=== PATIENT | female | born 1960 | race Caucasian/White ===

== ENCOUNTER → 2016-10-07 | Outpatient (CLI) | payer OTHER | LOC: OD 13:15 | PROVIDERS: ATTEND Specialist | DX: E11.9 Type 2 diabetes mellitus without complications (principal) | CPT/HCPCS: 36415; 83036 ==

== ENCOUNTER 2016-12-14 03:49 | Emergency (ER) | payer OTHER ==
--- NOTE | 2016-12-14 05:39 | ER Document Report ---
ED Medical Screen (RME) - General Chief Complaint: Rectal Pain Stated Complaint: RECTAL PAIN Time Seen by Provider: 12/14/16 05:37 Mode of Arrival: Wheelchair Information source: Patient Notes: Patient states that she developed rectal pain around 245 this morning. Patient states the pain woke her up. Patient also reports left lower pelvic pain off and on but states that he has had this pelvic pain in the past. Patient denies any blood in the stools, nausea, or vomiting. Patient states that the pain initially was very sharp and is now only very mild hx: IBS, diabetes, ischemic colitis, , cholecystectomy, abdominoplasty TRAVEL OUTSIDE OF THE [place] IN LAST 30 DAYS: No - Related Data Allergies/Adverse Reactions: No Known Allergies Allergy (Verified 03/17/13 22:09) Past Medical History Renal/ Medical History: Denies: Hx Peritoneal Dialysis Musculoskeltal Medical History: Reports Hx Arthritis Psychiatric Medical History: Reports: Hx Depression Past Surgical History: Reports: Hx Abdominal Surgery - abdominoplasty, Hx Section - x2, Hx Cholecystectomy, Hx Hysterectomy, Hx Orthopedic Surgery - revision of the left hip October 2012 - Immunizations Hx Diphtheria, Pertussis, Tetanus Vaccination: Yes Physical Exam - Vital signs Vitals: Temp Pulse Resp BP Pulse Ox 97.5 F 70 18 121/72 96 12/14/16 03:53 12/14/16 03:53 12/14/16 03:53 12/14/16 03:53 12/14/16 03:53 - Abdominal Tenderness: Tender - Lower pelvic tenderness - Rectal Hemorrhoids: None Course - Vital Signs Vital signs: Temp Pulse Resp BP Pulse Ox 97.5 F 70 18 121/72 96 12/14/16 03:53 12/14/16 03:53 12/14/16 03:53 12/14/16 03:53 12/14/16 03:53
--- NOTE | 2016-12-14 06:05 | RADIOLOGY REPORT (SQ) ---
EXAM DESCRIPTION: KUB/ABDOMEN (SINGLE VIEW) COMPLETED DATE/TIME: 12/14/2016 5:55 am REASON FOR STUDY: rectal pain, LLQ pain COMPARISON: None. NUMBER OF VIEWS: One view. TECHNIQUE: Supine radiographic image of the abdomen acquired. LIMITATIONS: None. FINDINGS: BOWEL GAS PATTERN: Moderate transverse and right colonic stool retention. CALCIFICATIONS: No suspicious calcifications. SOFT TISSUES: No gross mass or suggestion of organomegaly. HARDWARE: As below. BONES: Left total hip arthroplasty. Right upper abdominal clips. Moderate osteoarthritis of the rig ht hip with moderate medial all migration. OTHER: No other significant finding. IMPRESSION: NO RADIOGRAPHIC EVIDENCE FOR ACUTE ABDOMINAL DISEASE. TECHNICAL DOCUMENTATION: JOB ID: [id number] [employer]- All Rights Reserved
[2016-12-14 06:09] LABS: ABSOLUTE BASOPHILS # (AUTO) 0.1 10^3/uL (0.0-0.2); ABSOLUTE EOSINOPHILS # (AUTO) 0.2 10^3/uL (0.0-0.6); ABSOLUTE LYMPHOCYTES (AUTO) 2.6 10^3/uL (0.5-4.7); ABSOLUTE MONOCYTES (AUTO) 0.7 10^3/uL (0.1-1.4); ABSOLUTE NEUT (AUTO) 6.2 10^3/uL (1.7-8.2); BASOPHILS % (AUTO) 0.6 % (0-2); EOSINOPHILS % (AUTO) 2.1 % (0-6); HEMATOCRIT 37.9 % (36.0-47.0); HEMOGLOBIN 12.5 g/dL (12.0-15.5); HGB HCT DIFFERENCE -0.4; LYMPHOCYTES % (AUTO) 26.6 % (13-45); MEAN CORPUSCULAR HEMOGLOBIN 29.1 pg (27.0-33.4); MEAN CORPUSCULAR HGB CONC 32.9 g/dL (32.0-36.0); MEAN CORPUSCULAR VOLUME 89 fl (80-97); MONOCYTES % (AUTO) 7.6 % (3-13); RED BLOOD COUNT 4.29 10^6/uL (3.72-5.28); RED CELL DISTRIBUTION WIDTH 13.3 % (11.5-14.0); SEGMENTED NEUTROPHILS % (AUTO) 63.1 % (42-78); WHITE BLOOD COUNT 9.8 10^3/uL (4.0-10.5)
[2016-12-14 06:20] LABS: ALANINE AMINOTRANSFERASE 65 U/L (9-52); ALBUMIN 4.1 g/dL (3.5-5.0); ALKALINE PHOSPHATASE 83 U/L (38-126); ANION GAP 14 (5-19); ASPARTATE AMINO TRANSFERASE 30 U/L (14-36); BILIRUBIN,DIRECT 0.3 mg/dL (0.0-0.4); BILIRUBIN,TOTAL 0.6 mg/dL (0.2-1.3); BLOOD UREA NITROGEN 18 mg/dL (7-20); CALCIUM 9.1 mg/dL (8.4-10.2); CARBON DIOXIDE 26 mmol/L (22-30); CHLORIDE 99 mmol/L (98-107); CREATININE RESULT 0.69 mg/dL (0.52-1.25); GLUCOSE 153 mg/dL (75-110); SODIUM 139.4 mmol/L (137-145); TOTAL PROTEIN 7.2 g/dL (6.3-8.2)
[2016-12-14] MEDS ORDERED: LIDOCAINE 2% URO-JET 5 ML KIT MM ONE (06:48)
[2016-12-14 06:50] VITALS: BP 104/70
[2016-12-14 06:53] LABS: AMORPHOUS SEDIMENT,URINE TRACE /HPF; APPEARANCE,URINE CLEAR; BILIRUBIN,URINE NEGATIVE (NEGATIVE); GLUCOSE, URINE NEGATIVE (NEGATIVE); KETONES,URINE NEGATIVE (NEGATIVE); LEUKOCYTE ESTERASE,URINE NEGATIVE (NEGATIVE); NITRITE,URINE NEGATIVE (NEGATIVE); PROTEIN,URINE NEGATIVE (NEGATIVE); URINE SPECIFIC GRAVITY 1.012; UROBILINOGEN,URINE NEGATIVE mg/dL (<2.0)
--- NOTE | 2016-12-14 06:54 | ER Document Report ---
ED General - General Chief Complaint: Rectal Pain Stated Complaint: RECTAL PAIN Time Seen by Provider: 12/14/16 05:37 Mode of Arrival: Wheelchair TRAVEL OUTSIDE OF THE [place] IN LAST 30 DAYS: No - HPI Patient complains to provider of: rectal pain Notes: Patient coming in for severe rectal pain. Patient has history of internal hemorrhoids. Patient states also is having bright red blood when stooling. Patient states she has not followed up with a GI specialist for quite some time and has been using Preparation H for her rectal pain. Patient denies any other symptoms nausea vomiting diarrhea. - Related Data Allergies/Adverse Reactions: No Known Allergies Allergy (Verified 03/17/13 22:09) Past Medical History - General Information source: Patient - Social History Smoking Status: Unknown if Ever Smoked Family History: None Patient has suicidal ideation: No Patient has homicidal ideation: No Renal/ Medical History: Denies: Hx Peritoneal Dialysis Musculoskeltal Medical History: Reports Hx Arthritis Psychiatric Medical History: Reports: Hx Depression Past Surgical History: Reports: Hx Abdominal Surgery - abdominoplasty, Hx Section - x2, Hx Cholecystectomy, Hx Hysterectomy, Hx Orthopedic Surgery - revision of the left hip October 2012 - Immunizations Hx Diphtheria, Pertussis, Tetanus Vaccination: Yes Review of Systems - Review of Systems Constitutional: No symptoms reported EENT: No symptoms reported Cardiovascular: No symptoms reported Respiratory: No symptoms reported Gastrointestinal: Other - Rectal pain Genitourinary: No symptoms reported Female Genitourinary: No symptoms reported Musculoskeletal: No symptoms reported Skin: No symptoms reported Hematologic/Lymphatic: No symptoms reported Neurological/Psychological: No symptoms reported -: Yes All other systems reviewed and negative Physical Exam - Vital signs Vitals: Temp Pulse Resp BP Pulse Ox 97.5 F 70 18 121/72 96 12/14/16 03:53 12/14/16 03:53 12/14/16 03:53 12/14/16 03:53 12/14/16 03:53 Interpretation: Normal - General General appearance: Appears well, Alert - HEENT Head: Normocephalic, Atraumatic Eyes: Normal Pupils: PERRL - Respiratory Respiratory status: No respiratory distress Chest status: Nontender Breath sounds: Normal Chest palpation: Normal - Cardiovascular Rhythm: Regular Heart sounds: Normal auscultation Murmur: No - Abdominal Inspection: Normal Distension: No distension Bowel sounds: Normal Tenderness: Nontender Organomegaly: No organomegaly - Rectal Hemorrhoids: Internal. No: External, Anal fissure - Back Back: Normal, Nontender - Extremities General upper extremity: Normal inspection, Nontender, Normal color, Normal ROM , Normal temperature General lower extremity: Normal inspection, Nontender, Normal color, Normal ROM , Normal temperature, Normal weight bearing. No: Madi's sign - Neurological Neuro grossly intact: Yes Cognition: Normal Orientation: AAOx4 [place] Coma Scale Eye Opening: Spontaneous [place] Coma Scale Verbal: Oriented [place] Coma Scale Motor: Obeys Commands [place] Coma Scale Total: 15 Speech: Normal Motor strength normal: LUE, RUE, LLE, RLE Sensory: Normal - Psychological Associated symptoms: Normal affect, Normal mood - Skin Skin Temperature: Warm Skin Moisture: Dry Skin Color: Normal Course - Re-evaluation Re-evalutation: 12/14/16 10:12 Looks to have internal hemorrhoids. Patient was given a Urojet for her pain control to take at home. Patient will be prescribed enalapril and directed care. Patient x-ray does show the moderate constipation patient was encouraged to use stool softeners patient was given follow-up with GI patient will be discharged home - Vital Signs Vital signs: Temp Pulse Resp BP Pulse Ox 97.5 F 61 20 104/70 94 12/14/16 03:53 12/14/16 06:49 12/14/16 06:49 12/14/16 06:49 12/14/16 06:49 - Laboratory Result Diagrams: 12/14/16 05:58 12/14/16 05:58 Laboratory results interpreted by me: 12/14/16 12/14/16 05:58 06:05 Glucose 153 H ALT 65 H Urine Blood SMALL H Discharge - Discharge Clinical Impression: Rectal pain Hemorrhoids Qualifiers: Hemorrhoid type: unspecified Qualified Code(s): K64.9 - Unspecified hemorrhoids Condition: Good Disposition: HOME, SELF-CARE Instructions: Hemorrhoids ([facility]) Additional Instructions: Apply medication as directed. Return to the ER if symptoms worsen. I would highly recommend following up with a GI specialist for further evaluation Also recommend taking a stool softener your x-ray today that shows some stool retention possible some constipation. [id number] stool softener will aid in soften his stools also aid in relief with your hemorrhoids Prescriptions: Hydrocortisone/Pramoxine [Analpram Hc 2.5% Cream] 30 gm RC TID #1 cream.appl Lidocaine [Recticare] 30 gm TP QID #1 cream..g. Forms: Return to Work Referrals: KATHY REAL MD [ACTIVE STAFF] - Follow up as needed
== END 2016-12-14 07:08 | disposition home or self-care (01) ==
LOC: ER 03:49
DX: K64.8 Other hemorrhoids (principal); K62.89 Other specified diseases of anus and rectum; K92.1 Melena
CPT/HCPCS: 99284; 36415; 83605; 85025; 80053; 81001; 74000; J3490

== ENCOUNTER 2016-12-18 09:42 | Observation (INO) | payer OTHER ==
[2016-12-18] MEDS ORDERED: ASPIRIN 325 MG TABLET PO ONE (10:53)
[2016-12-18] MEDS ORDERED: NITROGLYCERIN 0.4 MG/TAB 25 TAB/BOTTLE SL PRN ×2 (10:53→17:15)
--- NOTE | 2016-12-18 10:53 | ER Document Report ---
ED Medical Screen (RME) - General Mode of Arrival: Wheelchair Information source: Patient TRAVEL OUTSIDE OF THE [place] IN LAST 30 DAYS: No - HPI Patient complains to provider of: Chest Pain Onset: This morning Onset/Duration: Sudden Associated Symptoms: Other - see notes above - Related Data Smoking: Non-smoker Frequency of alcohol use: Rare Drug Abuse: None <LUKE SMITH - Last Filed: 12/18/16 11:29> <IMAN RESENDIZ - Last Filed: 12/18/16 11:57> - General Chief Complaint: Chest Pain > 30 Stated Complaint: chest pain Time Seen by Provider: 12/18/16 10:45 Notes: 56-year-old female with history of GERD, diabetes, and hyperlipidemia presents to the ED complaining of sharp stabbing substernal chest pain that has radiated between her shoulder blades and a tingling sensation down her left arm which started earlier this morning. Patient states that she initially thought that the pain was secondary to GERD, but when she took Nexium, Tums, and Maalox, the pain did not resolve. Patient reports that the pain is intermittent and that it eases off and comes back in "waves". Patient reports that the pain is similar to when she had cholelithiasis, but reports that she had her gallbladder removed. Patient saw her GI specialist yesterday and is scheduled for endoscopy secondary to GERD. Patient denies history of [place] or pancreatitis. (LUKE SMITH) - Related Data Allergies/Adverse Reactions: No Known Allergies Allergy (Verified 12/18/16 09:58) Past Medical History - General Information source: Patient - Social History Cigarette use (# per day): No Chew tobacco use (# tins/day): No Frequency of alcohol use: Rare Drug Abuse: None Family history: Reviewed & Not Pertinent - Past Medical History Cardiac Medical History: Reports: Hx Hypercholesterolemia Denies: Hx Heart Attack Endocrine Medical History: Reports: Hx Diabetes Mellitus Type 2 Renal/ Medical History: Denies: Hx Peritoneal Dialysis GI Medical History: Reports: Other - No history of pancreatitis. Musculoskeltal Medical History: Reports Hx Arthritis Psychiatric Medical History: Reports: Hx Depression Past Surgical History: Reports: Hx Abdominal Surgery - abdominoplasty, Hx Section - x2, Hx Cholecystectomy, Hx Hysterectomy, Hx Orthopedic Surgery - revision of the left hip October 2012 - Immunizations Hx Diphtheria, Pertussis, Tetanus Vaccination: Yes <LUKE SMITH - Last Filed: 12/18/16 11:29> Review of Systems - Review of Systems Constitutional: No symptoms reported EENT: No symptoms reported Cardiovascular: See HPI, Chest pain - substernal that radiates in between shoulder blades Respiratory: No symptoms reported Gastrointestinal: No symptoms reported Genitourinary: No symptoms reported Female Genitourinary: No symptoms reported Musculoskeletal: No symptoms reported Skin: No symptoms reported Hematologic/Lymphatic: No symptoms reported Neurological/Psychological: See HPI, Tingling - left arm -: Yes All other systems reviewed and negative <LUKE SMITH - Last Filed: 12/18/16 11:29> Physical Exam - General General appearance: Alert In distress: None - Respiratory Respiratory status: No respiratory distress Breath sounds: Normal - Cardiovascular Rhythm: Regular Heart sounds: Normal auscultation Murmur: No Friction rub: No Gallop: None auscultated - Abdominal Inspection: Normal Distension: No distension Bowel sounds: Normal Tenderness: Tender - epigastric tenderness to palpation <LUKE SMITH - Last Filed: 12/18/16 11:29> Course - Laboratory Result Diagrams: 12/18/16 11:10 12/18/16 11:10 <LUKE SMITH - Last Filed: 12/18/16 11:29> - Laboratory Result Diagrams: 12/18/16 11:10 12/18/16 11:10 <IMAN RESENDIZ - Last Filed: 12/18/16 11:57> - Vital Signs Vital signs: Temp Pulse Resp BP Pulse Ox 97.5 F 80 12 138/87 H 95 12/18/16 09:57 12/18/16 09:57 12/18/16 09:57 12/18/16 09:57 12/18/16 09:57 Scribe Documentation - Scribe Written by Sakshi:: Sakshi Tan, 12/18/2016 1137 acting as scribe for :: Ed <LUKE SMITH - Last Filed: 12/18/16 11:29>
--- NOTE | 2016-12-18 11:09 | EKG REPORT ---
SEVERITY:- ABNORMAL ECG - SINUS RHYTHM LEFT ATRIAL ABNORMALITY : Confirmed by: Amanda Wyatt 18-Dec-2016 11:08:43
[2016-12-18 11:34] LABS: ABSOLUTE BASOPHILS # (AUTO) 0.1 10^3/uL (0.0-0.2); ABSOLUTE EOSINOPHILS # (AUTO) 0.2 10^3/uL (0.0-0.6); ABSOLUTE LYMPHOCYTES (AUTO) 2.5 10^3/uL (0.5-4.7); ABSOLUTE MONOCYTES (AUTO) 0.7 10^3/uL (0.1-1.4); ABSOLUTE NEUT (AUTO) 4.6 10^3/uL (1.7-8.2); BASOPHILS % (AUTO) 0.9 % (0-2); HEMATOCRIT 40.1 % (36.0-47.0); HEMOGLOBIN 13.1 g/dL (12.0-15.5); HGB HCT DIFFERENCE -0.8; LYMPHOCYTES % (AUTO) 30.5 % (13-45); MEAN CORPUSCULAR HEMOGLOBIN 28.9 pg (27.0-33.4); MEAN CORPUSCULAR HGB CONC 32.6 g/dL (32.0-36.0); MEAN CORPUSCULAR VOLUME 89 fl (80-97); MONOCYTES % (AUTO) 8.9 % (3-13); RED BLOOD COUNT 4.52 10^6/uL (3.72-5.28); RED CELL DISTRIBUTION WIDTH 13.1 % (11.5-14.0); SEGMENTED NEUTROPHILS % (AUTO) 57.7 % (42-78)
--- NOTE | 2016-12-18 11:37 | RADIOLOGY REPORT (SQ) ---
EXAM DESCRIPTION: CHEST PA/LAT COMPLETED DATE/TIME: 12/18/2016 11:29 am REASON FOR STUDY: chest pain COMPARISON: 03/18/2013 EXAM PARAMETERS: NUMBER OF VIEWS: two views TECHNIQUE: Digital Frontal and Lateral radiographic views of the chest acquired. RADIATION DOSE: NA LIMITATIONS: none FINDINGS: LUNGS AND PLEURA: No opacities, masses or pneumothorax. No pleural effusion. MEDIASTINUM AND HILAR STRUCTURES: No masses or contour abnormalities. HEART AND VASCULAR STRUCTURES: Heart normal size. No evidence for failure. BONES: No acute findings. HARDWARE: None in the chest. OTHER: No other significant finding. IMPRESSION: NO SIGNIFICANT RADIOGRAPHIC FINDING IN THE CHEST. TECHNICAL DOCUMENTATION: JOB ID: [id number] [employer]- All Rights Reserved
[2016-12-18] MEDS ORDERED: REGADENOSON INJ 0.4 MG/5 ML DISP.SYRIN IV ONE (11:39)
[2016-12-18 11:41] LABS: PROTHROMBIN TIME 12.4 SEC (11.4-15.4)
[2016-12-18] MEDS ORDERED: LIDOCAINE 2% VISCOUS SOLN 20 ML UDCUP PO ONE (11:47)
[2016-12-18] MEDS ORDERED: MAG HYDROX/AL HYDROX/SIMETH SUSP 30 ML UDCUP PO ONE (11:47)
[2016-12-18] MEDS ORDERED: METOCLOPRAMIDE HCL ORAL SOLN 10 MG/10 ML UDCUP PO ONE (11:47)
[2016-12-18 12:01] LABS: ALANINE AMINOTRANSFERASE 90 U/L (9-52); ALBUMIN 4.6 g/dL (3.5-5.0); ALKALINE PHOSPHATASE 94 U/L (38-126); ANION GAP 14 (5-19); ASPARTATE AMINO TRANSFERASE 67 U/L (14-36); BILIRUBIN,DIRECT 0.4 mg/dL (0.0-0.4); BILIRUBIN,TOTAL 0.6 mg/dL (0.2-1.3); BLOOD UREA NITROGEN 14 mg/dL (7-20); CALCIUM 9.7 mg/dL (8.4-10.2); CARBON DIOXIDE 27 mmol/L (22-30); CHLORIDE 97 mmol/L (98-107); CREATINE KINASE 78 U/L (30-135); CREATININE RESULT 0.68 mg/dL (0.52-1.25); GLUCOSE 126 mg/dL (75-110); LIPASE 99.4 U/L (23-300); POTASSIUM 3.9 mmol/L (3.6-5.0); SODIUM 138.1 mmol/L (137-145); TOTAL PROTEIN 8.3 g/dL (6.3-8.2)
[2016-12-18 12:25] LABS: TROPONIN I < 0.012 ng/mL
--- NOTE | 2016-12-18 13:25 | ER Document Report ---
ED Cardiac - General Chief Complaint: Chest Pain > 30 Stated Complaint: chest pain Time Seen by Provider: 12/18/16 10:45 Mode of Arrival: Wheelchair Notes: 56-year-old female with history of GERD, diabetes, and hyperlipidemia presents to the ED complaining of sharp stabbing substernal chest pain that has radiated between her shoulder blades and a tingling sensation down her left arm which started earlier this morning. Patient states that she initially thought that the pain was secondary to GERD, but when she took Nexium, Tums, and Maalox, the pain did not resolve. Patient reports that the pain is intermittent and that it eases off and comes back in "waves". Patient reports that the pain is similar to when she had cholelithiasis, but reports that she had her gallbladder removed. Patient saw her GI specialist yesterday and is scheduled for endoscopy secondary to GERD. Patient denies history of [place] or pancreatitis. TRAVEL OUTSIDE OF THE [place] IN LAST 30 DAYS: No - Related Data Allergies/Adverse Reactions: No Known Allergies Allergy (Verified 12/18/16 09:58) Past Medical History - General Information source: Patient - Social History Smoking Status: Former Smoker Cigarette use (# per day): No Chew tobacco use (# tins/day): No Frequency of alcohol use: Rare Drug Abuse: None Family History: None Patient has suicidal ideation: No Patient has homicidal ideation: No - Past Medical History Cardiac Medical History: Reports: Hx Hypercholesterolemia Denies: Hx Heart Attack Endocrine Medical History: Reports: Hx Diabetes Mellitus Type 2 Renal/ Medical History: Denies: Hx Peritoneal Dialysis GI Medical History: Reports: Other - No history of pancreatitis. Musculoskeltal Medical History: Reports Hx Arthritis Psychiatric Medical History: Reports: Hx Depression Past Surgical History: Reports: Hx Abdominal Surgery - abdominoplasty, Hx Section - x2, Hx Cholecystectomy, Hx Hysterectomy, Hx Orthopedic Surgery - revision of the left hip October 2012 - Immunizations Hx Diphtheria, Pertussis, Tetanus Vaccination: Yes Review of Systems - Review of Systems Constitutional: No symptoms reported Cardiovascular: See HPI Respiratory: See HPI Gastrointestinal: See HPI -: Yes All other systems reviewed and negative Physical Exam - Vital signs Vitals: Temp Pulse Resp BP Pulse Ox 97.5 F 80 12 138/87 H 95 12/18/16 09:57 12/18/16 09:57 12/18/16 09:57 12/18/16 09:57 12/18/16 09:57 - Notes Notes: PHYSICAL EXAM GENERAL: Alert, interacts well. NECK: Full range of motion. Supple. Trachea midline. LUNGS: Clear to auscultation bilaterally, no wheezes, rales, or rhonchi. No respiratory distress. HEART: Regular rate and rhythm. No murmurs, gallops, or rubs. ABDOMEN: Soft, nondistended, nontender. No guarding, rebound, or rigidity.. Bowel sounds present in all 4 quadrants. EXTREMITIES: Moves all 4 extremities spontaneously. No edema, radial and dorsalis pedis pulses 2/4 bilaterally. No cyanosis. NEUROLOGICAL: Alert and oriented x4. Normal speech. PSYCH: Normal affect, normal mood. SKIN: Warm, dry, normal turgor. No rashes or lesions noted. Course - Re-evaluation Re-evalutation: 12/18/16 19:49 Patient is a 56-year-old female hemodynamic stable, no acute distress and afebrile. Patient did not respond to initial GI cocktail. Patient responded to one sublingual nitroglycerin and is now chest pain-free. Patient with moderate clinical suspicion for ACS given clinical history, physical exam, EKG without ST elevations or depressions and negative initial troponin. Patient concern for ACS given that she has a history of hyperlipidemia but not on a statin and is diabetic. Heart score greater than 3. Indicating that patient needs to be admitted for observation and stress test. Patient is agreeable with plan. Patient has been accepted by hospitalist service for observation on telemetry. - Vital Signs Vital signs: Temp Pulse Resp BP Pulse Ox 98 F 64 17 122/68 98 12/18/16 16:47 12/18/16 16:47 12/18/16 16:47 12/18/16 16:47 12/18/16 16:47 - Laboratory Result Diagrams: 12/18/16 11:10 12/18/16 11:10 Laboratory results interpreted by me: 12/18/16 12/18/16 11:10 11:10 Chloride 97 L Glucose 126 H Hemoglobin A1c % 6.9 H AST 67 H ALT 90 H Total Protein 8.3 H - Diagnostic Test Radiology reviewed: Image reviewed, Reports reviewed - EKG Interpretation by Me EKG shows normal: Sinus rhythm Rate: Normal Rhythm: NSR When compared to previous EKG there are: Previous EKG unavailable Discharge - Discharge Clinical Impression: Chest pain Qualifiers: Chest pain type: unspecified Qualified Code(s): R07.9 - Chest pain, unspecified Disposition: ADMITTED OBSERVATION Admitting Provider: Hospitalist [facility] Unit Admitted: Telemetry
[2016-12-18] MEDS ORDERED: INSULIN REG, HUMAN 100 UNIT/ML 3 ML VIAL (PYX) SUBCUT PRN (16:21)
[2016-12-18] MEDS ORDERED: DEXTROSE 40% GEL 15 GM TUBE PO PRN ×2 (16:21)
[2016-12-18] MEDS ORDERED: GLUCAGON,HUMAN RECOMB 1 MG INJ IM PRN (16:21)
[2016-12-18] MEDS ORDERED: ACETAMINOPHEN 325 MG TABLET PO PRN (16:21)
[2016-12-18] MEDS ORDERED: DEXTROSE 50%-WATER 25 GM/50 ML DISP.SYRIN IV PRN ×2 (16:21)
[2016-12-18] MEDS ORDERED: ONDANSETRON HCL INJ/PF 4 MG/2 ML SDV IV PRN (16:21)
--- NOTE | 2016-12-18 17:14 | PDOC H&P ---
History of Present Illness Admission Date/PCP: 12/18/16 13:39 NAHUN PERERA MD Patient complains of: Chest pain History of Present Illness: RAY HOLLIDAY is a 56 year old female, with history of hyperlipidemia, type 2 diabetes mellitus, presents to the hospital with chest pain that started early this morning. Patient reports that the pain is located in the precordium without any radiation. It is sharp in nature. No relation to activity. There is associated numbness and tingling sensation on her left hand. Patient also felt discomfort between her shoulder blades. There is no significant shortness of breath. No nausea or vomiting. No diaphoresis. No palpitations dizziness or lightheadedness. Patient went to work and symptoms persisted therefore she was brought to the hospital for evaluation and was referred for observation. Patient's chest pain eventually resolved in the emergency room after NTG given per ED provider. Past Medical History Past Medical History: Medication reconciliation pending verification from the patient's pharmacist Cardiac Medical History: Reports: Hyperlipidema Denies: Myocardial Infarction Endocrine Medical History: Reports: Diabetes Mellitus Type 2 GI Medical History: Reports: Other - IBS. Musculoskeltal Medical History: Reports: Arthritis Psychiatric Medical History: Reports: Depression Past Surgical History Past Surgical History: Reports: Section - x2, Cholecystectomy, Hysterectomy, Orthopedic Surgery - revision of the left hip October 2012 Social History Information Source: Patient Smoking Status: Never Smoker Frequency of Alcohol Use: None Hx Recreational Drug Use: No Drugs: None Family History Family History: DM, Malignancy Parental Family History Reviewed: Yes Children Family History Reviewed: Yes Sibling(s) Family History Reviewed.: Yes Medication/Allergy Allergies/Adverse Reactions: No Known Allergies Allergy (Verified 12/18/16 09:58) Review of Systems Constitutional: ABSENT: chills, fever(s), headache(s), weight gain, weight loss Eyes: ABSENT: visual disturbances Ears: ABSENT: hearing changes Nose, Mouth, and Throat: ABSENT: mouth pain, sore throat Cardiovascular: PRESENT: chest pain. ABSENT: dyspnea on exertion, edema, orthropnea, palpitations Respiratory: PRESENT: dyspnea. ABSENT: cough, hemoptysis, sputum Gastrointestinal: ABSENT: abdominal pain, constipation, diarrhea, hematemesis, hematochezia, melena, nausea, vomiting Genitourinary: ABSENT: dysuria, hematuria Musculoskeletal: ABSENT: joint swelling Integumentary: ABSENT: rash, wounds Neurological: ABSENT: abnormal gait, abnormal speech, confusion, dizziness, focal weakness, syncope Psychiatric: ABSENT: anxiety, depression, homidical ideation, suicidal ideation Endocrine: ABSENT: cold intolerance, heat intolerance, polydipsia, polyuria Hematologic/Lymphatic: ABSENT: easy bleeding, easy bruising Physical Exam Vital Signs: Temp Pulse Resp BP Pulse Ox 97.5 F 80 16 113/69 95 12/18/16 09:57 12/18/16 09:57 12/18/16 14:26 12/18/16 14:26 12/18/16 14:26 General appearance: PRESENT: no acute distress, cooperative, well-developed, well-nourished Head exam: PRESENT: atraumatic, normocephalic Eye exam: PRESENT: conjunctiva pink, EOMI, PERRLA. ABSENT: scleral icterus Ear exam: PRESENT: normal external ear exam Mouth exam: PRESENT: moist, neck supple, tongue midline Neck exam: ABSENT: carotid bruit, JVD, lymphadenopathy, thyromegaly Respiratory exam: PRESENT: clear to auscultation dustin. ABSENT: rales, rhonchi, wheezes Cardiovascular exam: PRESENT: RRR. ABSENT: diastolic murmur, rubs, systolic murmur Pulses: PRESENT: normal dorsalis pedis pul Vascular exam: PRESENT: normal capillary refill GI/Abdominal exam: PRESENT: normal bowel sounds, soft. ABSENT: distended, guarding, mass, organolmegaly, rebound, tenderness Rectal exam: PRESENT: deferred Extremities exam: PRESENT: full ROM, other - No calf muscle tenderness, Homans sign is negative.. ABSENT: calf tenderness, clubbing, pedal edema Neurological exam: PRESENT: alert, awake, oriented to person, oriented to place , oriented to time, oriented to situation, CN II-XII grossly intact. ABSENT: motor sensory deficit Psychiatric exam: PRESENT: appropriate affect, normal mood. ABSENT: homicidal ideation, suicidal ideation Skin exam: PRESENT: dry, intact, warm. ABSENT: cyanosis, rash Results Impressions: Chest X-Ray 12/18/16 00:00 IMPRESSION: NO SIGNIFICANT RADIOGRAPHIC FINDING IN THE CHEST. Assessment & Plan - Diagnosis (1) Chest pain Qualifiers: Chest pain type: unspecified Qualified Code(s): R07.9 - Chest pain, unspecified Is this a current diagnosis for this admission?: Yes (2) Abnormal liver function test Is this a current diagnosis for this admission?: Yes (3) Hyperlipidemia Qualifiers: Hyperlipidemia type: unspecified Qualified Code(s): E78.5 - Hyperlipidemia, unspecified Is this a current diagnosis for this admission?: Yes (4) Type 2 diabetes mellitus Qualifiers: Diabetes mellitus complication status: with unspecified complications Diabetes mellitus director long term care insulin use: without fci use Qualified Code(s): E11.8 - Type 2 diabetes mellitus with unspecified complications Is this a current diagnosis for this admission?: Yes - Time Time Spent: 50 to 70 Minutes - Plan Summary Plan Summary: Admit the patient to observation. We will obtain cardiac enzymes 3. If negative we will proceed with a stress test in the morning. In the meantime I will obtain a d-dimer, check CTA of the chest to rule out dissection. Patient will be placed on antiplatelet therapy and supplemental oxygen. Further testing depends on the initial evaluations outlined above.
[2016-12-18] MEDS: DOCUSATE SODIUM 100 MG CAPSULE PO SCH (17:39)
[2016-12-18] MEDS: LANSOPRAZOLE 30 MG TAB.RAP.DR PO SCH (17:40)
[2016-12-18] MEDS ORDERED: SERTRALINE HCL 50 MG TABLET PO ONE (18:00)
[2016-12-18 18:02] LABS: TROPONIN I < 0.012 ng/mL
--- NOTE | 2016-12-18 19:01 | RADIOLOGY REPORT (SQ) ---
EXAM DESCRIPTION: CTA CHEST COMPLETED DATE/TIME: 12/18/2016 6:43 pm REASON FOR STUDY: Chest pain, pulmonary embolism, aortic dissection COMPARISON: Chest radiograph 12/18/2016 TECHNIQUE: CT scan of the chest performed using helical scanning technique with dynamic intravenous contrast injection. Images reviewed with lung, soft tissue and bone windows. Reconstructed coronal and sagittal MPR images reviewed. Additional 3 dimensional post-processing performed to develop Maximal Intensity Projection images (CO P). All images stored on PACS. All CT scanners at this facility use dose modulation, iterative reconstruction, and/or weight based d osing when appropriate to reduce radiation dose to as low as reasonably achievable (ALARA). [facility]: Dose Right [facility]: CareDose [facility]: Dose Right [facility]: Teradose 4D [facility]: [facility] CONTRAST TYPE AND DOSE: contrast/concentration: Isovue 370.00 mg/ml; Total Contrast Delivered: 75.0 ml; Total Saline Delivered: 75.0 ml RENAL FUNCTION: GFR > 60. RADIATION DOSE: 56.38 . LIMITATIONS: None. FINDINGS: LUNGS AND PLEURA: No masses, infiltrates, pneumothorax. No pleural effusions, calcificati ons. AORTA AND GREAT VESSELS: No aneurysm or dissection. HEART: No pericardial effusion. PULMONARY ARTERIES: No emboli visualized in the main pulmonary arteries or the segmental branches. HILAR AND MEDIASTINAL STRUCTURES: No identified masses or abnormal nodes. HARDWARE: None in the chest. UPPER ABDOMEN: Marked fatty infiltration of the liver. THYROID AND OTHER SOFT TISSUES: No masses. No adenopathy. BONES: No acute or significant finding. 3D MIPS: Confirm above findings. OTHER: No other significant finding. IMPRESSION: NORMAL CTA OF THE CHEST. NO PULMONARY EMBOLI. Marked fatty infiltration of the liver. TECHNICAL DOCUMENTATION: JOB ID: [id number] Quality ID # [id number]: Final reports with documentation of one or more dose reduction techniques (e.g., Au tomated exposure control, adjustment of the mA and/or kV according to patient size, use of iterative reconstruction technique) 2010 [employer]- All Rights Reserved
[2016-12-18 23:46] LABS: CREATINE KINASE MB 0.37 ng/mL (<4.55)
[2016-12-18 23:49] LABS: TROPONIN I < 0.012 ng/mL
[2016-12-19] MEDS: LANSOPRAZOLE 30 MG TAB.RAP.DR PO SCH (05:20)
[2016-12-19] MEDS ORDERED: ENOXAPARIN SODIUM INJ 40 MG/0.4 ML DISP.SYRIN SUBCUT SCH (08:00)
[2016-12-19] MEDS ORDERED: ASPIRIN 81 MG TABLET, CHEWABLE PO SCH (10:00)
[2016-12-19] MEDS ORDERED: SERTRALINE HCL 50 MG TABLET PO SCH (10:00)
[2016-12-19] MEDS: DOCUSATE SODIUM 100 MG CAPSULE PO SCH (10:54)
[2016-12-19] MEDS ORDERED: ONDANSETRON HCL INJ/PF 4 MG/2 ML SDV IV PRN (13:27)
--- NOTE | 2016-12-19 14:48 | PDOC DISCHARGE SUMMARY ---
General - Admit/Disc Date/PCP Admission Date/Primary Care Provider: 12/18/16 16:21 NAHNU PERERA MD Discharge Date: 12/19/16 - Discharge Diagnosis (1) Chest pain Is this a current diagnosis for this admission?: Yes (2) Abnormal liver function test Is this a current diagnosis for this admission?: Yes (3) Hyperlipidemia Is this a current diagnosis for this admission?: Yes (4) Type 2 diabetes mellitus Is this a current diagnosis for this admission?: Yes - Additional Information Discharge Diet: Cardiac - Low-fat low-salt, Diabetic - No concentrated sweets Discharge Activity: Activity As Tolerated, Balance Activity w/Rest Home Medications: Cyclobenzaprine HCl [Flexeril 10 mg Tablet] 10 mg PO TIDP PRN 12/18/16 Estrogens,Conjugated [Premarin 1.25 mg Tablet] 1.25 mg PO DAILY 12/18/16 Hydrochlorothiazide [Hydrodiuril 50 mg Tablet] 50 mg PO DAILY 12/18/16 Metformin HCl [Glucophage] 500 mg PO DAILY 12/18/16 Potassium Chloride [Klor-Con Sprinkle] 8 meq PO DAILY 12/18/16 Sertraline HCl [Zoloft] 100 mg PO DAILY 12/18/16 Aspirin [Aspirin 81 mg Chewable Tablet] 81 mg PO DAILY tab.chew 12/19/16 Additional Information: Avoid [id number] medications including Tylenol History of Present Illness Patient complains of: Chest pain History of Present Illness: RAY HOLLIDAY is a 56 year old female, with history of hyperlipidemia, type 2 diabetes mellitus, presents to the hospital with chest pain that started early this morning. Patient reports that the pain is located in the precordium without any radiation. It is sharp in nature. No relation to activity. There is associated numbness and tingling sensation on her left hand. Patient also felt discomfort between her shoulder blades. There is no significant shortness of breath. No nausea or vomiting. No diaphoresis. No palpitations dizziness or lightheadedness. Patient went to work and symptoms persisted therefore she was brought to the hospital for evaluation and was referred for observation. Patient's chest pain eventually resolved in the emergency room after NTG given per ED provider. Hospital Course Hospital Course: The patient was admitted to telemetry. Serial cardiac enzymes were obtained and they were negative for myocardial infarction. The patient was placed on nitroglycerin as needed as well as aspirin. The patient's chest pain has already resolved. Eventually the patient underwent stress test and was negative for reversible ischemia. She reportedly had already an appointment with a gastroenterology for endoscopy. The patient improved. The rest of the hospital stays essentially unremarkable. Patient was discharged home with above instructions. Physical Exam Vital Signs: Temp Pulse Resp BP Pulse Ox 98.2 F 69 18 119/69 96 12/19/16 11:53 12/19/16 14:00 12/19/16 11:53 12/19/16 11:53 12/19/16 11:53 Intake & Output 12/18/16 12/19/16 12/20/16 06:59 06:59 06:59 Intake Total 393 Output Total 300 Balance 93 Weight 96.8 kg General appearance: PRESENT: no acute distress, cooperative Head exam: PRESENT: normocephalic Eye exam: PRESENT: EOMI Mouth exam: PRESENT: moist, neck supple Neck exam: ABSENT: JVD Respiratory exam: PRESENT: clear to auscultation dustin. ABSENT: rhonchi, wheezes Cardiovascular exam: PRESENT: RRR. ABSENT: gallop GI/Abdominal exam: PRESENT: normal bowel sounds, soft. ABSENT: distended, tenderness Extremities exam: ABSENT: pedal edema Neurological exam: PRESENT: alert, awake, oriented to person, oriented to place , oriented to time, oriented to situation Skin exam: PRESENT: dry, warm. ABSENT: cyanosis Results Laboratory Results: 12/18/16 12/18/16 12/18/16 17:00 17:00 22:55 Creatine Kinase 73 71 CK-MB (CK-2) 0.40 Troponin I < 0.012 12/18/16 22:55 Creatine Kinase CK-MB (CK-2) 0.37 Troponin I < 0.012 Impressions: Chest X-Ray 12/18/16 00:00 IMPRESSION: NO SIGNIFICANT RADIOGRAPHIC FINDING IN THE CHEST. Chest/Abdomen CTA 12/18/16 00:00 IMPRESSION: NORMAL CTA OF THE CHEST. NO PULMONARY EMBOLI. Marked fatty infiltration of the liver. Qualifiers PATEINT BEING DISCHARGED WITH ANY OF THE FOLLOWING DIAGNOSIS?: No Plan Discharge Plan: Follow-up with primary care physician in 1 week. Follow-up with etl analyst developer in 2 to 4 weeks. Keep appointment with gastroenterology as scheduled. Time Spent: Less than 30 Minutes
[2016-12-19 15:19] VITALS: BP 122/68
--- NOTE | 2016-12-26 16:53 | DRAGON STRESS TEST REPORT ---
Intravenous LexiScan Cardiolite stress test using single photon emmision computerized tomographic. Date of procedure: 12/19/2016. Ordering Provider: Dr. Dwayne Funez. Patient Status.: In Patient. Indication: . Chest Pain coronary risk factors: Age, diabetes mellitus, and dyslipidemia. Resting EKG: Sinus rhythm. Poor R-wave leads V1 to V4 Stress EKG: No changes of ischemia. The patient had no chest pain or discomfort, no arrhythmias seen. Reason for termination: Protocol. Conclusions: Normal EKG and hemodynamic response to IV LexiScan. Nuclear data: At rest the patient was given 12.71 millicuries of technetium 99 sestamibi injected intravenously. As per protocol rest non gated SPECT images were obtained. Subsequently the patient was given intravenous LexiScan at a dose of 0.4 mg in 5 mL intravenously, followed by flush with normal saline. Subsequently the stress dose of 39.9 millicuries of technetium 99 sestamibi was injected intravenously. As per protocol stress gated images were obtained. Nuclear interpretation: Review of images showed that all segments of the myocardium had normal perfusion at rest, and normal perfusion post stress with IV LexiScan. All segments of the myocardium had normal motion, contraction, and thickening by gated study.T. I D. ratio was normal at 0.96. Computer read rest, and stress left ventricular ejection fraction were 47 %, and 44 % respectively. Visually both the stress and rest ejection fractions were normal, and greater than 55%. Impression: 1. There is no scintigraphic evidence of LexiScan induced myocardial ischemia. 2. There is no scintigraphic evidence of myocardial infarction/scar. Recommendations: Aggressive risk factor modification, and treating the underlying co- morbidities MTDD
== END 2016-12-19 15:48 | disposition home or self-care (01) ==
LOC: ER 09:42 → EH 13:39 → UNDOADMOB 13:39 → EH 16:21 → 4W 16:44 → EH 16:44
DX: R07.2 Precordial pain (principal); R79.89 Other specified abnormal findings of blood chemistry; E78.5 Hyperlipidemia, unspecified; E11.8 Type 2 diabetes mellitus with unspecified complications; R20.2 Paresthesia of skin; R06.00 Dyspnea, unspecified; K21.9 Gastro-esophageal reflux disease without esophagitis; Z79.899 Other long term (current) drug therapy; Z79.84 Long term (current) use of oral hypoglycemic drugs; Z79.82 Long term (current) use of aspirin; Z90.49 Acquired absence of other specified parts of digestive tract; Z87.891 Personal history of nicotine dependence; Z98.890 Other specified postprocedural states
CPT/HCPCS: 93005; 99285; 36415; 82553; 82962 ×2; 82550; 83690; 85025; 85610; 80053; 84484; 83036; 85379; 93017; 71020; 78452; 71275; 93010; G0378 ×2; A9500; J2785; J3490 ×2; J1650; Q9969

== ENCOUNTER → 2017-03-04 | Outpatient (CLI) | payer OTHER ==
[2017-03-04 11:04] LABS: ABSOLUTE BASOPHILS # (AUTO) 0.1 10^3/uL (0.0-0.2); ABSOLUTE EOSINOPHILS # (AUTO) 0.2 10^3/uL (0.0-0.6); ABSOLUTE LYMPHOCYTES (AUTO) 2.5 10^3/uL (0.5-4.7); ABSOLUTE MONOCYTES (AUTO) 0.7 10^3/uL (0.1-1.4); ABSOLUTE NEUT (AUTO) 5.6 10^3/uL (1.7-8.2); BASOPHILS % (AUTO) 0.7 % (0-2); HEMATOCRIT 39.3 % (36.0-47.0); HEMOGLOBIN 13.3 g/dL (12.0-15.5); HGB HCT DIFFERENCE 0.6; LYMPHOCYTES % (AUTO) 27.9 % (13-45); MEAN CORPUSCULAR HEMOGLOBIN 29.7 pg (27.0-33.4); MEAN CORPUSCULAR HGB CONC 33.9 g/dL (32.0-36.0); MEAN CORPUSCULAR VOLUME 88 fl (80-97); MONOCYTES % (AUTO) 7.4 % (3-13); RED BLOOD COUNT 4.49 10^6/uL (3.72-5.28); WHITE BLOOD COUNT 9.1 10^3/uL (4.0-10.5)
[2017-03-04 11:32] LABS: ALANINE AMINOTRANSFERASE 98 U/L (9-52); ALBUMIN 4.6 g/dL (3.5-5.0); ALKALINE PHOSPHATASE 107 U/L (38-126); ANION GAP 12 (5-19); ASPARTATE AMINO TRANSFERASE 52 U/L (14-36); BILIRUBIN,DIRECT 0.4 mg/dL (0.0-0.4); BILIRUBIN,TOTAL 0.5 mg/dL (0.2-1.3); BLOOD UREA NITROGEN 17 mg/dL (7-20); CALCIUM 10.2 mg/dL (8.4-10.2); CARBON DIOXIDE 28 mmol/L (22-30); CHLORIDE 99 mmol/L (98-107); CREATININE RESULT 0.73 mg/dL (0.52-1.25); GLUCOSE 165 mg/dL (75-110); POTASSIUM 4.3 mmol/L (3.6-5.0); SODIUM 139.1 mmol/L (137-145); TOTAL PROTEIN 7.8 g/dL (6.3-8.2)
== END ==
LOC: OD 10:20
PROVIDERS: ATTEND Specialist
DX: I10 Essential (primary) hypertension (principal); E11.9 Type 2 diabetes mellitus without complications; R51 Headache; Z13.29 Encounter for screening for other suspected endocrine disorder
CPT/HCPCS: 36415; 80053; 83036; 84443; 85025

== ENCOUNTER → 2017-08-07 | Outpatient (CLI) | payer OTHER ==
--- NOTE | 2017-08-08 07:27 | RADIOLOGY REPORT (SQ) ---
EXAM DESCRIPTION: MRI ABDOMEN COMBO COMPLETED DATE/TIME: 08/07/2017 6:06 pm REASON FOR STUDY: K76.9 LIVER DISEASE, UNSPECIFIED K76.9 LIVER DISEASE, UNSPECIFIED COMPARISON: CT angio chest 10/30/2009, 12/18/2016 Abdominal ultrasound 10/30/2009 TECHNIQUE: Multiplanar multisequence imaging performed without and with contrast including sagittal, axial and coronal T2, axial T1, axial gradient fat sat T1, axial, sagittal and coronal fat sat T1 po st contrast. CONTRAST TYPE AND DOSE: 20 mL Prohance. RENAL FUNCTION: GFR > 60. LIMITATIONS: None. FINDINGS: LIVER: Normal size. There are multiple small less than 15 mm hepatic cysts present throug hout the liver. On out of phase T1 weighted images there is significant signal dropout of liver pare nchyma from diffuse fatty infiltration. Geographic areas of relative sparing of fatty infiltration a re seen along the liver adjacent to the portal vein bifurcation and along the posterior aspect left l obe liver. These correlate with findings on CT angio chest 10/30/2009 and likely represent focal spar ing of fatty infiltration. No worrisome enhancing masses. SPLEEN: Normal size. No focal lesions. PANCREAS: No masses. No adjacent inflammation or peripancreatic fluid collections. Pancreatic duct no t dilated. GALLBLADDER: Surgically absent ADRENAL GLANDS: Right adrenal unremarkable. 2.3 x 1.2 cm left adrenal adenoma similar compared to pr evious cross-sectional studies here RIGHT KIDNEY AND URETER: No masses. No hydronephrosis. LEFT KIDNEY AND URETER: No masses. No hydronephrosis. AORTA AND VESSELS: No aneurysm. No dissection. Renal arteries, SMA, celiac without stenosis. RETROPERITONEUM: No retroperitoneal adenopathy, hemorrhage or masses. BOWEL: Not well visualized ABDOMINAL WALL AND PERITONEUM: No hernias. No free fluid. BONES: No acute or significant findings. OTHER: No other significant finding. IMPRESSION: Fatty infiltration of the liver with focal sparing at the brian hepatis, correlates with old studies dating back to 2009. Multiple benign hepatic cysts. Small left adrenal adenoma. TECHNICAL DOCUMENTATION: JOB ID: [id number]- All Rights Reserved
== END ==
LOC: RAD 16:27
PROVIDERS: ATTEND Nurse Practitioner
DX: K76.89 Other specified diseases of liver (principal); K76.0 Fatty (change of) liver, not elsewhere classified; K75.9 Inflammatory liver disease, unspecified
CPT/HCPCS: 74183; 82565